=== PATIENT | male | born 1990 | race African-American/Black ===

== ENCOUNTER 2021-02-24 15:21 | Emergency (ER) | payer SELFPAY ==
[~2021-02-24] VITALS: Ht 185.4 cm; Wt 122.7 kg
[2021-02-24] MEDS ORDERED: LIDOCAINE 1% 10 ML VIAL SQ ONE (17:45)
[2021-02-24] MEDS ORDERED: BUPIVACAINE HCL/PF 0.25% 10 ML VIAL SQ ONE (17:45)
[2021-02-24] MEDS ORDERED: BUPIVACAINE HCL 0.25% 50 ML VIAL SQ ONE (17:45)
[2021-02-24] MEDS ORDERED: OxyCODONE HCL/ACETAMINOPHEN 5-325 MG TABLET PO ONE (17:45)
[2021-02-24 18:18] VITALS: BP 110/75
== END 2021-02-24 18:51 | disposition home or self-care (01) ==
LOC: EMS 15:21
DX: S63.283A Dislocation of proximal interphalangeal joint of left middle finger, initial encounter (principal); Z88.0 Allergy status to penicillin; W22.8XXA Striking against or struck by other objects, initial encounter; Y93.89 Activity, other specified; Y92.89 Other specified places as the place of occurrence of the external cause; Y99.8 Other external cause status
CPT/HCPCS: 26770; 73140; 99284; J3490 ×2

== ENCOUNTER 2021-02-25 19:08 | Emergency (ER) | payer SELFPAY ==
[~2021-02-25] VITALS: Ht 185.4 cm; Wt 122.7 kg
[2021-02-25 19:08] VITALS: BP 130/74
== END 2021-02-25 20:04 | disposition left against medical advice (07) ==
LOC: EMS 19:10
DX: S63.259A Unspecified dislocation of unspecified finger, initial encounter (principal); Z53.21 Procedure and treatment not carried out due to patient leaving prior to being seen by health care provider; X58.XXXA Exposure to other specified factors, initial encounter; Y93.89 Activity, other specified; Y92.89 Other specified places as the place of occurrence of the external cause; Y99.8 Other external cause status

== ENCOUNTER 2024-11-02 12:40 | Emergency (ER) | payer SELFPAY ==
[~2024-11-02] VITALS: Ht 175.3 cm; Wt 89.0 kg
[2024-11-02 12:42] VITALS: TEMP 98.1
[2024-11-02 14:15] VITALS: BP 129/69; PULSE 72; RESP 17; O2SAT 100
== END 2024-11-02 15:02 | disposition home or self-care (01) ==
LOC: EMS 12:40
DX: R07.89 Other chest pain (principal); Z88.0 Allergy status to penicillin
CPT/HCPCS: 93005; 99283

== ENCOUNTER 2024-11-13 21:14 | Emergency (ER) | payer SELFPAY ==
[~2024-11-13] VITALS: Ht 188 cm; Wt 100.0 kg
[2024-11-13 21:15] VITALS: TEMP 98.1
[2024-11-13 23:23] VITALS: BP 125/88; PULSE 73; RESP 16; O2SAT 97
== END 2024-11-13 23:24 | disposition home or self-care (01) ==
LOC: EMS 21:14
DX: S06.0XAA Concussion with loss of consciousness status unknown, initial encounter (principal); R07.89 Other chest pain; Z88.0 Allergy status to penicillin; W22.8XXA Striking against or struck by other objects, initial encounter; Y93.89 Activity, other specified; Y92.89 Other specified places as the place of occurrence of the external cause; Y99.8 Other external cause status
CPT/HCPCS: 71045; 93005; 99283

== ENCOUNTER 2024-11-16 09:07 | Emergency (ER) | payer SELFPAY ==
[~2024-11-16] VITALS: Ht 185.4 cm; Wt 113.6 kg
[2024-11-16 09:09] VITALS: BP 127/88; PULSE 64; RESP 18; TEMP 98.1; O2SAT 100
== END 2024-11-16 10:01 | disposition home or self-care (01) ==
LOC: EMS 09:07
DX: S06.0XAA Concussion with loss of consciousness status unknown, initial encounter (principal); Z88.0 Allergy status to penicillin; W22.8XXA Striking against or struck by other objects, initial encounter; Y93.89 Activity, other specified; Y92.89 Other specified places as the place of occurrence of the external cause; Y99.8 Other external cause status
CPT/HCPCS: 99282; Z7502

== ENCOUNTER 2025-04-08 23:30 | Emergency (ER) | payer OTHER ==
[~2025-04-08] VITALS: Ht 185.4 cm; Wt 99.1 kg
[2025-04-08 23:44] VITALS: BP 148/66; PULSE 111; RESP 16; TEMP 99.9; O2SAT 100
[2025-04-08] MEDS: ACETAMINOPHEN 500 MG TABLET PO ONE (23:45)
[2025-04-08] MEDS: IBUPROFEN 400 MG TABLET PO ONE (23:45)
== END 2025-04-09 06:00 | disposition home or self-care (01) ==
LOC: EMS 23:43
DX: S43.402A Unspecified sprain of left shoulder joint, initial encounter (principal); Z88.0 Allergy status to penicillin; X58.XXXA Exposure to other specified factors, initial encounter; Y93.89 Activity, other specified; Y92.89 Other specified places as the place of occurrence of the external cause; Y99.8 Other external cause status
CPT/HCPCS: 99284; 73030-TC; 73060-TC; Z7502; Z7610

== ENCOUNTER 2025-06-19 20:51 | Emergency (ER) | payer MEDICAID, OTHER ==
[~2025-06-19] VITALS: Ht 182.9 cm; Wt 115.0 kg
[2025-06-19 20:55] VITALS: TEMP 98.7
[2025-06-19] MEDS ORDERED: MICO57CR2 TP (22:53)
[2025-06-19 22:58] VITALS: BP 127/71; PULSE 80; RESP 16; O2SAT 100
== END 2025-06-19 23:03 | disposition home or self-care (01) ==
LOC: EMS 20:51
DX: S40.811A Abrasion of right upper arm, initial encounter (principal); Z88.0 Allergy status to penicillin; X58.XXXA Exposure to other specified factors, initial encounter; Y93.89 Activity, other specified; Y92.89 Other specified places as the place of occurrence of the external cause; Y99.8 Other external cause status
CPT/HCPCS: 99282; Z7502